=== PATIENT | male | born 1985 | race Caucasian/White ===

== ENCOUNTER 2017-02-07 21:36 | Emergency (ER) | payer OTHER ==
--- NOTE | 2017-02-07 21:46 | PDOC ---
Rapid Medical Evaluation Chief Complaint: Urinary Problem Time Seen by Provider: 02/07/17 21:44 Medical Evaluation: Allergies Allergy/AdvReac Type Severity Reaction Status Date / Time No Known Allergies Allergy Verified 02/07/17 21:44 02/07/17 21:44 31 year old male with history of hydrocele left presenting with dysuria, urinary frequency, and left flank pain x 6 hrs. -V/s unremarkable -UA/culture -To Main ED for further evaluation
[2017-02-07 21:47] VITALS: BP 130/62; PULSE 92; TEMP 97.9; BMI 23.3
[2017-02-07 23:06] LABS: URINE APPEARANCE CLEAR; URINE BILIRUBIN NEGATIVE (NEGATIVE); URINE COLOR YELLOW; URINE GLUCOSE (UA) NEGATIVE (NEGATIVE); URINE KETONE NEGATIVE (NEGATIVE); URINE LEUK ESTERASE NEGATIVE (NEGATIVE); URINE NITRITE NEGATIVE (NEGATIVE); URINE UROBILINOGEN NEGATIVE E.U./dl (0.2-1.0)
[2017-02-07 23:07] LABS: URINE BLOOD 3+ (NEGATIVE); URINE PROTEIN 1+ (NEGATIVE)
[2017-02-07 23:08] LABS: URINE HYALINE CAST 9 /lpf; URINE MUCUS MANY; URINE RBC 569 /hpf (0-3); URINE WBC 4 /hpf (3-5)
--- NOTE | 2017-02-07 23:46 | PDOC ---
History of Present Illness - History of Present Illness Initial Comments: 02/07/17 23:47 The patient is a 31 year old male with a past medical history of hydrocelle, heartburn to the emergency department with a complaint of dysuria, frequency, hesitancy and left flank pain for 6 hours. Patient was walking when he first developed the pain. The pain radiates into the groin Patient at home took 4 aspirins with no relief. Reports mild nausea which have resolved. Denies vomiting Denies any surgical history Denies history of kidney stones Denies tobacco use, occasional alcohol use socially once a month. 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 - Immunization History Immunization Up to Date: Yes - Psycho/Social/Smoking Cessation Hx Suicidal Ideation: No Smoking History: Never smoked Information on smoking cessation initiated: No Hx Alcohol Use: Yes Drug/Substance Use Hx: No <Emma Russo - Last Filed: 02/09/17 00:51> - Past Medical History Allergies/Adverse Reactions: Allergies Allergy/AdvReac Type Severity Reaction Status Date / Time No Known Allergies Allergy Verified 02/07/17 21:44 Home Medications: Ambulatory Orders Ciprofloxacin [Cipro (Restricted To Id)] 500 mg PO Q12H #6 tablet 02/08/17 Ketorolac Tromethamine [Toradol] 10 mg PO Q6H PRN #10 tablet 02/08/17 Tamsulosin HCl [Flomax] 0.4 mg PO DAILY #7 capsule 02/08/17 Review of Systems - Review of Systems Able to Perform ROS?: Yes Comments:: 02/07/17 23:47 CONSTITUTIONAL: Absent: fever, chills, diaphoresis, generalized weakness, malaise, loss of appetite HEENT: Absent: rhinorrhea, nasal congestion, throat pain, throat swelling, difficulty swallowing, mouth swelling, ear pain, eye pain, visual Changes CARDIOVASCULAR: Absent: chest pain, syncope, palpitations, irregular heart rate, lightheadedness , peripheral edema RESPIRATORY: Absent: cough, shortness of breath, dyspnea with exertion, orthopnea, wheezing, stridor, hemoptysis GASTROINTESTINAL: Absent: abdominal pain, abdominal distension, nausea, vomiting, diarrhea, constipation, melena, hematochezia GENITOURINARY: Present: dysuria, frequency, urgency, hesitancy, flank pain Absent: hematuria, genital pain MUSCULOSKELETAL: Absent: myalgia, arthralgia, joint swelling SKIN: Absent: rash, itching, pallor HEMATOLOGIC/IMMUNOLOGIC: Absent: easy bleeding, easy bruising, lymphadenopathy, frequent infections ENDOCRINE: Absent: unexplained weight gain, unexplained weight loss, heat intolerance, cold intolerance NEUROLOGIC: Absent: headache, focal weakness or paresthesias, dizziness, unsteady gait, seizure, mental status changes, bladder or bowel incontinence PSYCHIATRIC: Absent: anxiety, depression, suicidal or homicidal ideation, hallucinations. <Kenji Sanchez - Last Filed: 02/08/17 01:05> *Physical Exam - Vital Signs Last Vital Signs Temp Pulse Resp BP Pulse Ox 97.9 F 92 H 20 130/62 100 02/07/17 21:44 02/07/17 21:44 02/07/17 21:44 02/07/17 21:44 02/07/17 21:44 - Physical Exam Comments: 02/07/17 23:47 GENERAL: Well developed, well nourished. Awake and alert. No acute distress. HEENT: Normocephalic, atraumatic. PERRLA, EOMI. No conjunctival pallor. Sclera are non- icteric. Moist mucous membranes. Oropharynx is clear. NECK: Supple. Full ROM. No JVD. Carotid pulses 2+ and symmetric, without bruits. No thyromegaly. No lymphadenopathy. CARDIOVASCULAR: Regular rate and rhythm. No murmurs, rubs, or gallops. Distal pulses are 2+ and symmetric. PULMONARY: No evidence of respiratory distress. Lungs clear to auscultation bilaterally. No wheezing, rales or rhonchi. ABDOMINAL: Soft. Non-tender. Non-distended. No rebound or guarding. No organomegaly. Normoactive bowel sounds. MUSCULOSKELETAL Left CVA tenderness. Normal range of motion at all joints. No bony deformities or tenderness. EXTREMITIES: No cyanosis. No clubbing. No edema. No calf tenderness. SKIN: Warm and dry. Normal capillary refill. No rashes. No jaundice. NEUROLOGICAL: Alert, awake, appropriate. Gait is normal without ataxia. PSYCHIATRIC: Cooperative. Good eye contact. Appropriate mood , strange affect <Kenji Sanchez - Last Filed: 02/08/17 01:05> - Vital Signs Last Vital Signs Temp Pulse Resp BP Pulse Ox 97.9 F 92 H 20 130/62 100 02/07/17 21:44 02/07/17 21:44 02/07/17 21:44 02/07/17 21:44 02/07/17 21:44 <Emma Russo - Last Filed: 02/09/17 00:51> ED Treatment Course - ADDITIONAL ORDERS Additional order review: Laboratory Results 02/07/17 22:52 Urine Color Yellow Urine Appearance Clear Urine pH 5.0 Urine Protein 1+ H Urine Glucose (UA) Negative Urine Ketones Negative Urine Blood 3+ H Urine Nitrite Negative Urine Bilirubin Negative Urine Urobilinogen Negative Ur Leukocyte Esterase Negative Urine RBC 569 Urine WBC 4 Ur Epithelial Cells Rare Hyaline Casts 9 Urine Mucus Many - RADIOLOGY Radiology Studies Ordered: 02/08/17 00:56 CT ABDOMEN AND PELVIS Impression: Obstructing calculus in the distal ureter Electronically signed by Ck Henley M.D from imaging telephone lineworker <Kenji Sanchez - Last Filed: 02/08/17 01:05> - ADDITIONAL ORDERS Additional order review: Laboratory Results 02/07/17 22:52 Urine Color Yellow Urine Appearance Clear Urine pH 5.0 Urine Protein 1+ H Urine Glucose (UA) Negative Urine Ketones Negative Urine Blood 3+ H Urine Nitrite Negative Urine Bilirubin Negative Urine Urobilinogen Negative Ur Leukocyte Esterase Negative Urine RBC 569 Urine WBC 4 Ur Epithelial Cells Rare Hyaline Casts 9 Urine Mucus Many <Emma Russo - Last Filed: 02/09/17 00:51> Medical Decision Making - Medical Decision Making 31-year-old male who had some non-prep flank pain and dysuria in the afternoon. Urinalysis showed gross hematuria. CAT scan showed a 2 mm ureteral stone. Patient felt much better after Toradol was discharged to follow-up with his primary doctor 02/09/17 00:50 <Emma Russo - Last Filed: 02/09/17 00:51> *DC/Admit/Observation/Transfer - Attestations Scribe Attestion: 02/07/17 23:48 Documentation prepared by Kenji Sanchez, acting as internist medical doctor md for Emma Russo MD <Kenji Sanchez - Last Filed: 02/08/17 01:05> <Emma Russo - Last Filed: 02/09/17 00:51> Diagnosis at time of Disposition: Flank pain, acute, Kidney stone on left side, Hematuria - Discharge Dispostion Disposition: HOME Condition at time of disposition: Stable - Prescriptions Prescriptions: Ciprofloxacin [Cipro (Restricted To Id)] 500 mg PO Q12H #6 tablet Tamsulosin HCl [Flomax] 0.4 mg PO DAILY #7 capsule Ketorolac Tromethamine [Toradol] 10 mg PO Q6H PRN #10 tablet PRN Reason: Severe Pain - Referrals Referrals: Maureen Ham MD [Primary Care Provider] - - Patient Instructions Printed Discharge Instructions: DI for Kidney Stones Additional Instructions: please 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 pharmacy Followup with your physician
== END 2017-02-08 01:38 | disposition home or self-care (01) ==
LOC: JER 21:36
DX: N20.0 Calculus of kidney (principal); R31.9 Hematuria, unspecified
CPT/HCPCS: 74176; 81003; 81015; 87086; 99283-25

== ENCOUNTER 2017-03-28 11:50 | Day surgery (SDC) | payer OTHER ==
[2017-03-24 19:58] VITALS: BMI 24.2
[~2017-03-28 11:50] MED LIST: LEVOFLOXACIN 500 MG PREMIX BAG IVPB ONE
[2017-03-28] MEDS ORDERED: LEVOFLOXACIN 500 MG IVPB 100 ML IVPB ONE (14:59)
[2017-03-28] MEDS ORDERED: LEVOFLOXACIN 500 MG PREMIX BAG IVPB ONE (15:09)
[2017-03-28] MEDS ORDERED: MIDAZOLAM HCL 2 MG/2 ML SINGLE DOSE VIAL ONE ×2 (15:11→15:17)
[2017-03-28] MEDS ORDERED: oxyCODONE HCL 5 MG TABLET PO PRN (15:44)
[2017-03-28] MEDS ORDERED: LACTATED RINGERS SOLUTION 1,000 ML IV SCH (15:45)
--- NOTE | 2017-03-28 15:51 | OP ---
Operative Note - Note: Operative Date: 03/28/17 Pre-Operative Diagnosis: left renal stone Operation: left eswl Findings: 7 mm left mid pole stone Post-Operative Diagnosis: Same as Pre-op Surgeon: Roel Durant Anesthesia: General
[2017-03-28 16:13] VITALS: TEMP 97.6
[2017-03-28 19:05] VITALS: BP 116/67; PULSE 78
--- NOTE | 2017-03-29 08:47 | OP ---
DATE OF OPERATION: 03/28/2017 PREOPERATIVE DIAGNOSIS: Left renal stone. POSTOPERATIVE DIAGNOSIS: Left renal stone. PROCEDURE: Left extracorporeal shock wave lithotripsy. ATTENDING PHYSICIAN: Migel Fair MD ANESTHESIA: General. DESCRIPTION OF OPERATION: The patient is brought in the operating room, placed in supine position on the operating room table. Ultrasonography and fluoroscopy showed a left mid-pole stone measuring 7 mm. The patient was given antibiotics and anesthesia at this point. Shock wave lithotripsy was performed; 2500 impulses at 70 joules of power were administered to the stone. Excellent fragmentation was noted. The patient tolerated the procedure very well. No complications were noted. MIGEL FAIR M.D. [id number]
== END 2017-03-28 17:15 | disposition home or self-care (01) ==
LOC: JASU-SURG 11:50
PROVIDERS: ATTEND Urology
PROC: 0TF4XZZ Fragmentation in Left Kidney Pelvis, External Approach (ICD-10-PCS; principal; 2017-03-28 14:15)
DX: N20.0 Calculus of kidney (principal)
CPT/HCPCS: 94760

== ENCOUNTER 2018-07-03 11:42 | Day surgery (SDC) | payer OTHER ==
[2018-06-30 13:31] VITALS: BMI 22.6
[2018-07-03] MEDS ORDERED: MIDAZOLAM HCL 2 MG/2 ML SINGLE DOSE VIAL ONE (14:12)
[2018-07-03] MEDS ORDERED: PROPOFOL 20 ML ONE ×2 (14:12→14:21)
[2018-07-03] MEDS ORDERED: LIDOCAINE HCL 2% 100 MG/5 ML DISP.SYRIN ONE (14:13)
[2018-07-03] MEDS ORDERED: KETOROLAC TROMETHAMINE 30 MG/1 ML VIAL ONE (14:25)
--- NOTE | 2018-07-03 15:02 | OP ---
Operative Note - Note: Operative Date: 07/03/18 Pre-Operative Diagnosis: Left renal stone Operation: Left ESWL Findings: 3 mm upper and 3 mm mid pole Left renal stone Post-Operative Diagnosis: Same as Pre-op Surgeon: Roel Durant Anesthesia: Fractional Estimated Blood Loss (mls): 0
[2018-07-03 15:09] VITALS: PULSE 60
[2018-07-03 17:16] VITALS: BP 110/60; TEMP 97.8
--- NOTE | 2018-07-04 10:48 | OP ---
DATE OF OPERATION: 07/03/2018 PREOPERATIVE DIAGNOSIS: Left renal stone. POSTOPERATIVE DIAGNOSIS: Left renal stone. PROCEDURE: Left extracorporeal shock wave lithotripsy. ATTENDING: Migel Fair MD ANESTHESIA: Fractional. OPERATION: The patient was brought into the operating room, placed in supine position on the operating room table. Ultrasonography and fluoroscopy were performed. Two stones each measuring 3 mm were noted in the left kidney. One stone was in the upper pole and the other stone was in the mid pole. At this point, anesthesia was started and preoperative antibiotics administered. Shock wave lithotripsy was then started. A total of 2500 impulses were administered with an energy level of 17 joules of power, 1250 impulses to each stone at 17 joules of power was delivered. There were no complications noted. The patient tolerated the procedure very well. The disposition of the patient was to the recovery room. MIGEL FAIR M.D. [id number]
== END 2018-07-03 16:10 | disposition home or self-care (01) ==
LOC: JASU-SURG 11:42
PROVIDERS: ATTEND Urology
PROC: 0TF4XZZ Fragmentation in Left Kidney Pelvis, External Approach (ICD-10-PCS; principal; 2018-07-03 13:15)
DX: N20.0 Calculus of kidney (principal)
CPT/HCPCS: 36415; 84132

== ENCOUNTER 2022-12-30 13:24 | Emergency (ER) | payer BC ==
[2022-12-30 13:37] VITALS: BP 128/94; PULSE 86; RESP 17; TEMP 98.8; BMI 21.7
[2022-12-30] MEDS ORDERED: ACETAMINOPHEN 325 MG TABLET (FP) PO ONE (14:09)
[2022-12-30] MEDS ORDERED: ALPRAZolam 0.25 MG TABLET PO ONE (14:10)
[2022-12-30] MEDS ORDERED: ALPRAZolam 0.25 MG TABLET ONE (14:27)
[2022-12-30] MEDS ORDERED: ACETAMINOPHEN 325 MG TABLET (FP) ONE (14:27)
== END 2022-12-30 16:08 | disposition home or self-care (01) ==
LOC: JER 13:24
DX: G47.00 Insomnia, unspecified (principal); T88.7XXA Unspecified adverse effect of drug or medicament, initial encounter
CPT/HCPCS: 99283-25